=== PATIENT | male | born 1940 | race Caucasian/White ===

== ENCOUNTER 2018-10-24 12:34 | Inpatient (IN) | payer MEDICARE, MEDICAID ==
[~2018-10-24] VITALS: Ht 170.2 cm; Wt 70.3 kg
[2018-10-24 13:27] LABS: BASOPHILS % (AUTO) 0.4 % (0.0-2.0); EOSINOPHILS % (AUTO) 0.5 % (0.0-7.0); HEMATOCRIT 43.1 % (31.2-41.9); HEMOGLOBIN 14.1 g/dL (10.9-14.3); LYMPHOCYTES # (AUTO) 0.9 K/uL (20.0-40.0); LYMPHOCYTES % (AUTO) 11.2 % (20.5-51.5); MEAN CORPUSCULAR HEMOGLOBIN 29.2 uug (24.7-32.8); MEAN CORPUSCULAR HGB CONC 33 g/dL (32.3-35.6); MEAN CORPUSCULAR VOLUME 89.1 fL (75.5-95.3); MONOCYTES # (AUTO) 0.8 K/uL (2.0-10.0); MONOCYTES % (AUTO) 9.8 % (0.0-11.0); NEUTROPHILS # (AUTO) 6.3 K/uL (1.8-8.9); NEUTROPHILS % (AUTO) 78.1 % (38.5-71.5); PLATELET COUNT (AUTO) 211 K/uL (179-408); RED BLOOD CELL COUNT(AUTO) 4.83 MIL/uL (3.63-4.92)
[2018-10-24 13:33] LABS: CREATININE 0.9 mg/dL (0.6-1.3); POTASSIUM 3.5 mmol/L (3.5-5.1)
[2018-10-24 13:39] LABS: BILIRUBIN,DIRECT 5.6 mg/dL (0.0-0.2); BILIRUBIN,TOTAL 6.7 mg/dL (0.2-1.0); TOTAL PROTEIN, SERUM 7.6 g/dL (6.4-8.2)
[2018-10-24] MEDS ORDERED: ASPI81TA31 PO (13:39)
[2018-10-24] MEDS ORDERED: CHOL200074 PO (13:39)
[2018-10-24] MEDS ORDERED: MULT-213 PO (13:39)
[2018-10-24] MEDS ORDERED: ACET-2605 PO ×2 (13:39)
[2018-10-24] MEDS ORDERED: METO50TA16 PO (13:39)
[2018-10-24] MEDS ORDERED: MAG30ORA PO (13:39)
[2018-10-24] MEDS ORDERED: TAMS-3 PO (13:39)
[2018-10-24] MEDS ORDERED: NITR0.4T48 SL (13:39)
[2018-10-24] MEDS ORDERED: METF-442 PO (13:39)
[2018-10-24] MEDS ORDERED: INSU100V10 SQ ×2 (13:39)
[2018-10-24] MEDS ORDERED: ACET-2154 PO (13:39)
[2018-10-24] MEDS ORDERED: MAGN200T5 PO (13:39)
[2018-10-24] MEDS ORDERED: INSU100I28 SQ (13:39)
[2018-10-24] MEDS ORDERED: TIZA4CAP PO (13:39)
[2018-10-24] MEDS ORDERED: SITA50TA PO (13:39)
--- NOTE | 2018-10-24 16:10 | NUR ---
perineal hygiene provided, soft light color stool noticed in the diaper.
--- NOTE | 2018-10-24 16:40 | NUR ---
Received Patient from ER via [place], Patient with Admitting Diagnosis of Liver Failure under Dr. medeiros. Patient was transferred to bed in stable condition. No signs of Distress noted. No SOB. No complain of Pain or discomfort noted. IV site on Left Hand Intact, head to Toe Assessment was done. Skin is Intact. Called [facility] spoke with Dr. duggan (rn call center) with Order to continue Home medications, IVF NS at 75 cc/hr, and Labs in AM. Will Endorse to oncoming Nurse.
--- NOTE | 2018-10-24 16:45 | NUR ---
pt transfered to floor in stable condition.
[2018-10-24 16:50] VITALS: BP 122/48
[2018-10-24] MEDS: IV NS 1000 ML 1,000 ML IV PRN (17:41)
--- NOTE | 2018-10-24 19:30 | NUR ---
Received patient in bed awake A&Ox3. No SOB noted, not in distress. No complaints of pain at this time. IV site on L hand intact and patent w/ IVF infusing. Safety measures observed. Call light within reach
[2018-10-24 20:00] VITALS: BP 127/53
[2018-10-24] MEDS ORDERED: NITROGLYCERIN 0.4 MG/TAB BOTTLE SL PRN (20:00)
[2018-10-24] MEDS ORDERED: MAG HYDROX/AL HYDROX/SIMETH 30 ML LIQUID UDC PO PRN (20:00)
[2018-10-24] MEDS ORDERED: ACETAMINOPHEN ES 500 MG TABLET PO PRN ×2 (20:00)
[2018-10-24] MEDS: TAMSULOSIN HCL 0.4 MG CAP.SR.24H PO SCH (20:30)
[2018-10-24] MEDS: METOPROLOL TARTRATE 50 MG TABLET PO SCH (20:31)
[2018-10-24] MEDS: INSULIN GLARGINE,HUM 300 UNITS/3 ML CARTRIDGE SQ SCH (20:45)
[2018-10-24] MEDS: TIZANIDINE HCL 4 MG TABLET PO SCH (21:54)
[2018-10-25] MEDS: IV NS 1000 ML 1,000 ML IV PRN ×2 (05:11→17:42)
[2018-10-25 06:00] VITALS: BP 106/45
--- NOTE | 2018-10-25 06:04 | NUR ---
Patient slept intermittently. No SOB noted. No complaints of pain at this time. Patient compliant w/ medication and nursing care. All needs attended. Will endorse accordingly
[2018-10-25] MEDS: TIZANIDINE HCL 4 MG TABLET PO SCH (06:26)
[2018-10-25] MEDS: BLOOD SUGAR DIAGNOSTIC 1 EACH STRIP VI SCH ×4 (06:31→20:31)
[2018-10-25 06:40] LABS: BASOPHILS % (AUTO) 0.4 % (0.0-2.0); EOSINOPHILS # (AUTO) 0.1 K/uL (0.0-0.7); EOSINOPHILS % (AUTO) 1.6 % (0.0-7.0); HEMATOCRIT 37.5 % (36.7-47.1); HEMOGLOBIN 12.9 g/dL (12.5-16.3); LYMPHOCYTES # (AUTO) 1.2 K/uL (20.0-40.0); MEAN CORPUSCULAR HEMOGLOBIN 30.8 uug (23.8-33.4); MEAN CORPUSCULAR HGB CONC 34 g/dL (32.5-36.3); MEAN CORPUSCULAR VOLUME 89.6 fL (73.0-96.2); MONOCYTES # (AUTO) 0.9 K/uL (2.0-10.0); MONOCYTES % (AUTO) 11.9 % (0.0-11.0); NEUTROPHILS # (AUTO) 5.4 K/uL (1.8-8.9); NEUTROPHILS % (AUTO) 70.1 % (38.5-71.5); PLATELET COUNT (AUTO) 213 K/uL (152-348); RED BLOOD CELL COUNT(AUTO) 4.19 MIL/uL (4.06-5.63); WHITE BLOOD COUNT (AUTO) 7.7 K/uL (3.6-10.2)
[2018-10-25 06:42] LABS: ALANINE AMINOTRANSFERASE 177 U/L (16-63); ALKALINE PHOSPHATASE 424 U/L (50-136); ASPARTATE AMINOTRANSFERASE 103 U/L (15-37); BILIRUBIN,DIRECT 4.2 mg/dL (0.0-0.2); BILIRUBIN,TOTAL 5.6 mg/dL (0.2-1.0); CARBON DIOXIDE 26 mmol/L (21-32); CHLORIDE 105 mmol/L (98-107); CREATININE 0.9 mg/dL (0.6-1.3); GLUCOSE 73 mg/dL (74-106); POTASSIUM 3.3 mmol/L (3.5-5.1); TOTAL PROTEIN, SERUM 6.6 g/dL (6.4-8.2); UREA NITROGEN, BLOOD 14 mg/dL (7-18)
--- NOTE | 2018-10-25 07:00 | NUR ---
Received patient in bed, awake and verbally responsive. No signs of Respiratory distress noted. No SOB. No complain of Pain or discomfort. IVF infusing well to Left hand, No signs of Infiltration noted. Will continue to monitor.
[2018-10-25] MEDS ORDERED: METFORMIN HCL 500 MG TABLET PO SCH (08:00)
[2018-10-25] MEDS: INSULIN LISPRO 300 UNIT/3 ML VIAL SQ SCH ×3 (08:09→18:00)
[2018-10-25] MEDS: ASPIRIN 81 MG TAB.CHEW PO SCH (08:51)
[2018-10-25] MEDS: MAGNESIUM OXIDE 400 MG TABLET PO SCH (08:52)
[2018-10-25] MEDS: CHOLECALCIFEROL 1,000 UNIT TABLET PO SCH (08:52)
[2018-10-25] MEDS: METOPROLOL TARTRATE 50 MG TABLET PO SCH ×2 (08:52→20:31)
[2018-10-25] MEDS: MULTIVIT, IRON, MIN NO. 8, FA TABLET PO SCH (08:52)
[2018-10-25] MEDS: LINAGLIPTIN 5 MG TABLET PO SCH (08:52)
[2018-10-25] MEDS ORDERED: Medication Not On Formulary EA (Sitagliptin Phosphate (Januvia) 50 MG) PO SCH (09:00)
[2018-10-25] MEDS ORDERED: TIZANIDINE HCL 2 MG PO SCH (09:00)
[2018-10-25] MEDS ORDERED: Medication Not On Formulary EA (Multivitamins W-Minerals (Multivitamin With Minerals) 1 PO SCH (09:00)
[2018-10-25] MEDS ORDERED: Medication Not On Formulary EA (Magnesium (Magnesium Oxide) 400 MG) PO SCH (09:00)
[2018-10-25] MEDS ORDERED: Medication Not On Formulary EA (Metformin Hcl 1,000 MG) PO SCH (09:00)
[2018-10-25] MEDS: INSULIN GLARGINE,HUM 300 UNITS/3 ML CARTRIDGE SQ SCH ×2 (09:05→20:31)
[2018-10-25 11:49] VITALS: BP 119/56
[2018-10-25] MEDS ORDERED: POTASSIUM CHLORIDE 20 MEQ TAB.PRT.SR PO ONE (13:15)
[2018-10-25 15:47] VITALS: BP 122/60
--- NOTE | 2018-10-25 18:46 | NUR ---
Patient in Bed, awake and verbally responsive. No signs of Respiratory distress noted. No SOB. No complain of Pain or Discomfort noted. IVF infusing well to Left hand. No signs of Infiltration noted. Kitty MANAGER OF DISTRIBUTION came with order of Cdiff stool, sent specimen to labs. All needs attended and met. Will Endorse to Oncoming Nurse
--- NOTE | 2018-10-25 19:30 | NUR ---
Received patient in bed awake A&Ox3. No SOB noted, not in distress. No complaints of pain at this time. IV site on L hand intact and patent w/ IVF infusing. On contact isolation for possible c-diff. Patient to be on NPO at midnight for MRCP procedure umm. Safety measures observed. Call light within reach
[2018-10-25 19:54] VITALS: BP 129/47
[2018-10-25] MEDS: TAMSULOSIN HCL 0.4 MG CAP.SR.24H PO SCH (20:31)
[2018-10-26 05:06] VITALS: BP 124/48
--- NOTE | 2018-10-26 06:17 | NUR ---
Patient slept intermittently. No SOB noted, not in distress. Patient noted w/ loose BM x 2 this shift. Remains on NPO for MRCP w/o contrast this AM. Patient compliant w/ medication and nursing care. All needs attended. Will endorse accordingly
[2018-10-26 06:32] LABS: BASOPHILS # (AUTO) 0.1 K/uL (0.0-8.0); EOSINOPHILS # (AUTO) 0.2 K/uL (0.0-0.7); EOSINOPHILS % (AUTO) 1.8 % (0.0-7.0); HEMATOCRIT 35.8 % (36.7-47.1); HEMOGLOBIN 12.1 g/dL (12.5-16.3); LYMPHOCYTES # (AUTO) 1.6 K/uL (20.0-40.0); LYMPHOCYTES % (AUTO) 17.2 % (20.5-51.5); MEAN CORPUSCULAR HEMOGLOBIN 30.5 uug (23.8-33.4); MEAN CORPUSCULAR HGB CONC 34 g/dL (32.5-36.3); MEAN CORPUSCULAR VOLUME 89.7 fL (73.0-96.2); MONOCYTES % (AUTO) 10.3 % (0.0-11.0); NEUTROPHILS # (AUTO) 6.5 K/uL (1.8-8.9); NEUTROPHILS % (AUTO) 69.7 % (38.5-71.5); PLATELET COUNT (AUTO) 219 K/uL (152-348); RED BLOOD CELL COUNT(AUTO) 3.99 MIL/uL (4.06-5.63); WHITE BLOOD COUNT (AUTO) 9.3 K/uL (3.6-10.2)
[2018-10-26 06:44] LABS: CARBON DIOXIDE 25 mmol/L (21-32); CHLORIDE 108 mmol/L (98-107); CREATININE 0.8 mg/dL (0.6-1.3); MAGNESIUM 1.7 mg/dL (1.8-2.4); PHOSPHOROUS 2.2 mg/dL (2.5-4.9); POTASSIUM 3.6 mmol/L (3.5-5.1); UREA NITROGEN, BLOOD 7 mg/dL (7-18)
[2018-10-26 07:02] LABS: GLUCOSE 49 mg/dL (74-106)
--- NOTE | 2018-10-26 07:05 | NUR ---
Critical lab result for Glucose 49. Patient is alert and on NPO for MRCP procedure. Paged Dr. Khalil, awaiting for call back
[2018-10-26] MEDS: BLOOD SUGAR DIAGNOSTIC 1 EACH STRIP VI SCH ×4 (07:26→23:30)
--- NOTE | 2018-10-26 07:30 | NUR ---
Received patient in bed, awake and verbally responsive. No signs of distress noted. No SOB. No complain of Pain or discomfort, Blood sugar is 51 at this time, Dr. medeiros with New Order of D5 NS at 75 cc/hr. No signs of Hypoglycemia. Will continue to monitor.
[2018-10-26] MEDS: INSULIN LISPRO 300 UNIT/3 ML VIAL SQ SCH (07:54)
[2018-10-26 07:56] LABS: BILIRUBIN,DIRECT 2.2 mg/dL (0.0-0.2); BILIRUBIN,TOTAL 2.9 mg/dL (0.2-1.0); TOTAL PROTEIN, SERUM 6.6 g/dL (6.4-8.2)
[2018-10-26] MEDS ORDERED: IV D5/ 0.9% NACL 1,000 ML IV PRN (08:00)
--- NOTE | 2018-10-26 08:00 | NUR ---
Patient on NPO for MRCP w/o contrast at [facility] with 0900 picking machine operator helper.
[2018-10-26 08:07] LABS: HEPATITIS A AB, IgM Negative (Negative); HEPATITIS A AB, TOTAL Negative (Negative); HEPATITIS B SURFACE AB Non Reactive (.); HEPATITIS B SURFACE AG Negative (Negative)
[2018-10-26] MEDS: MAGNESIUM OXIDE 400 MG TABLET PO SCH (09:00)
[2018-10-26] MEDS: CHOLECALCIFEROL 1,000 UNIT TABLET PO SCH (09:00)
[2018-10-26] MEDS: LINAGLIPTIN 5 MG TABLET PO SCH (09:00)
[2018-10-26] MEDS: MULTIVIT, IRON, MIN NO. 8, FA TABLET PO SCH (09:00)
[2018-10-26] MEDS: METOPROLOL TARTRATE 50 MG TABLET PO SCH ×2 (09:00→20:37)
[2018-10-26] MEDS: INSULIN GLARGINE,HUM 300 UNITS/3 ML CARTRIDGE SQ SCH ×2 (09:00→20:39)
[2018-10-26] MEDS: ASPIRIN 81 MG TAB.CHEW PO SCH (09:00)
--- NOTE | 2018-10-26 09:00 | NUR ---
patient was picked up by 2 EMT for MRCP w/o contrast at [facility] in stable condition. last Blood sugar is 122.
[2018-10-26] MEDS ORDERED: DEXTROSE 50% 50 ML DISP.SYRIN IV PRN (10:30)
--- NOTE | 2018-10-26 10:55 | NUR ---
patient is back from [facility] instable condition.
[2018-10-26 12:02] VITALS: BP 149/58
--- NOTE | 2018-10-26 15:00 | NUR ---
Relayed MCRP w/o contrast to Kitty PROCESSING TECHNICIAN with New Order of STAT LFT, Direct and total Bili and Lipase.
[2018-10-26] MEDS: MAGNESIUM SULFATE/D5W 100 ML IV SCH ×2 (15:26→16:33)
[2018-10-26 15:43] VITALS: BP 149/53
[2018-10-26] MEDS ORDERED: NEUTRA PHOS PACKET PO ONE (15:45)
[2018-10-26] MEDS: IV NS 1000 ML 1,000 ML IV PRN (17:57)
[2018-10-26] MEDS: INSULIN REGULAR, HUMAN 300 UNIT/3 ML VIAL SQ PRN (18:43)
--- NOTE | 2018-10-26 18:48 | NUR ---
Patient in Bed, awake and verbally responsive. No signs of Distress noted. No complain of Pain or Discomfort. No signs of Hyper/Hypoglycemia. Abdomen Soft and non distended. All due medications given as ordered. All needs attended and met. Will endorse to Oncoming Nurse.
[2018-10-26 18:52] LABS: BILIRUBIN,TOTAL 2.7 mg/dL (0.2-1.0); TOTAL PROTEIN, SERUM 6.4 g/dL (6.4-8.2)
--- NOTE | 2018-10-26 19:30 | NUR ---
Received patient in bed asleep but arousable, A&Ox3. No SOB noted, not in distress. No complaints of pain at this time. IV site on L hand intact and patent w/ IVF infusing. On contact isolation for possible c-diff. Safety measures observed. Call light within reach
[2018-10-26] MEDS: TAMSULOSIN HCL 0.4 MG CAP.SR.24H PO SCH (20:37)
[2018-10-26 20:43] VITALS: BP 150/81
[2018-10-27] MEDS: INSULIN REGULAR, HUMAN 300 UNIT/3 ML VIAL SQ PRN (00:48)
[2018-10-27] MEDS: BLOOD SUGAR DIAGNOSTIC 1 EACH STRIP VI SCH ×3 (05:33→18:01)
[2018-10-27 06:29] VITALS: BP 140/72
[2018-10-27] MEDS: ACETAMINOPHEN 325 MG TABLET PO PRN (06:47)
[2018-10-27 06:53] LABS: CREATININE 0.8 mg/dL (0.6-1.3); PHOSPHOROUS 2.2 mg/dL (2.5-4.9); POTASSIUM 3.8 mmol/L (3.5-5.1)
--- NOTE | 2018-10-27 06:55 | NUR ---
Patient slept intermittently. No SOB noted, not in distress. Patient noted w/ soft BM x 1 this shift. Continue on contact isolation for possible c-diff. Patient noted w/ elevated Temp 100.8, PRN Tylenol 650mg given. BS at 6am was 66, OJ given, latest BS 115. Patient compliant w/ medication and nursing care. All needs attended. Will endorse accordingly
[2018-10-27] MEDS: LINAGLIPTIN 5 MG TABLET PO SCH (08:10)
[2018-10-27] MEDS: MULTIVIT, IRON, MIN NO. 8, FA TABLET PO SCH (08:10)
[2018-10-27] MEDS: MAGNESIUM OXIDE 400 MG TABLET PO SCH (08:10)
[2018-10-27] MEDS: CHOLECALCIFEROL 1,000 UNIT TABLET PO SCH (08:10)
[2018-10-27] MEDS: ASPIRIN 81 MG TAB.CHEW PO SCH (08:11)
[2018-10-27] MEDS: INSULIN GLARGINE,HUM 300 UNITS/3 ML CARTRIDGE SQ SCH ×2 (08:13→21:39)
[2018-10-27] MEDS: METOPROLOL TARTRATE 50 MG TABLET PO SCH ×2 (08:21→21:32)
[2018-10-27] MEDS ORDERED: INSULIN GLARGINE,HUM 300 UNITS/3 ML CARTRIDGE SQ SCH (09:00)
[2018-10-27] MEDS: IV NS 1000 ML 1,000 ML IV PRN (09:53)
[2018-10-27 11:02] VITALS: BP 113/49
[2018-10-27 15:02] VITALS: BP 145/62
[2018-10-27] MEDS ORDERED: NEUTRA PHOS PACKET PO ONE (16:15)
--- NOTE | 2018-10-27 18:06 | NUR ---
PATIENT IS ALERT X2-3, NO SOB, RESP EVEN NONLABORED,SKIN WARM AND DRY TO TOUCH, EVALUATED BY PT, PATIENT TOLERATED SITTING AT THE EDGE OF THE BED WITH ASSIST FOR FEW MINUTES, STAYED IN BED, KEPT CLEAN AND DRY, TOLERATED MEDS AND MEALS.
[2018-10-27 18:46] LABS: IRON, SERUM 17 ug/dL (50-175)
[2018-10-27 18:59] LABS: FERRITIN 232 ng/mL (26-388)
[2018-10-27 20:26] VITALS: BP 152/69
[2018-10-27] MEDS: TAMSULOSIN HCL 0.4 MG CAP.SR.24H PO SCH (21:31)
[2018-10-28] MEDS: IV NS 1000 ML 1,000 ML IV PRN ×2 (00:16→21:56)
[2018-10-28] MEDS: BLOOD SUGAR DIAGNOSTIC 1 EACH STRIP VI SCH ×4 (00:17→17:16)
[2018-10-28 05:16] VITALS: BP 132/62
[2018-10-28 08:00] VITALS: BP 146/68
[2018-10-28 08:11] LABS: CARBON DIOXIDE 25 mmol/L (21-32); CHLORIDE 103 mmol/L (98-107); CREATININE 0.8 mg/dL (0.6-1.3); GLUCOSE 87 mg/dL (74-106); PHOSPHOROUS 2.1 mg/dL (2.5-4.9); POTASSIUM 4.1 mmol/L (3.5-5.1); UREA NITROGEN, BLOOD 5 mg/dL (7-18)
--- NOTE | 2018-10-28 08:18 | NUR ---
Awake, alert, oriented x 2. O2 at 2L/NC with O2 sat of 92%. Temp of 100.8F. Sponge bath given. Repositioned comfortably in bed.
[2018-10-28] MEDS: ASPIRIN 81 MG TAB.CHEW PO SCH (09:18)
[2018-10-28] MEDS: METOPROLOL TARTRATE 50 MG TABLET PO SCH ×2 (09:19→21:05)
[2018-10-28] MEDS: CHOLECALCIFEROL 1,000 UNIT TABLET PO SCH (09:20)
[2018-10-28] MEDS: MULTIVIT, IRON, MIN NO. 8, FA TABLET PO SCH (09:20)
[2018-10-28] MEDS: LINAGLIPTIN 5 MG TABLET PO SCH (09:20)
[2018-10-28] MEDS: MAGNESIUM OXIDE 400 MG TABLET PO SCH (09:20)
[2018-10-28] MEDS: ACETAMINOPHEN 325 MG TABLET PO PRN (09:21)
[2018-10-28] MEDS: INSULIN GLARGINE,HUM 300 UNITS/3 ML CARTRIDGE SQ SCH ×2 (09:24→21:04)
--- NOTE | 2018-10-28 10:00 | NUR ---
Dr. Smith informed of patient's condition. Labs drawn, Chest xray done. For collection of urine and sputum.
[2018-10-28 10:06] LABS: HEPATITIS Be ANTIGEN Negative (Negative)
[2018-10-28 11:33] VITALS: BP 137/67
[2018-10-28 11:41] LABS: BASOPHILS % (AUTO) 0.3 % (0.0-2.0); EOSINOPHILS # (AUTO) 0.1 K/uL (0.0-0.7); HEMATOCRIT 34.8 % (36.7-47.1); HEMOGLOBIN 11.4 g/dL (12.5-16.3); LYMPHOCYTES # (AUTO) 1.2 K/uL (20.0-40.0); LYMPHOCYTES % (AUTO) 12.6 % (20.5-51.5); MEAN CORPUSCULAR HGB CONC 33 g/dL (32.5-36.3); MEAN CORPUSCULAR VOLUME 88.2 fL (73.0-96.2); MONOCYTES # (AUTO) 0.8 K/uL (2.0-10.0); MONOCYTES % (AUTO) 8.7 % (0.0-11.0); NEUTROPHILS # (AUTO) 7.5 K/uL (1.8-8.9); NEUTROPHILS % (AUTO) 77.4 % (38.5-71.5); PLATELET COUNT (AUTO) 230 K/uL (152-348); RED BLOOD CELL COUNT(AUTO) 3.95 MIL/uL (4.06-5.63); WHITE BLOOD COUNT (AUTO) 9.7 K/uL (3.6-10.2)
[2018-10-28 12:00] LABS: ALANINE AMINOTRANSFERASE 252 U/L (16-63); ALKALINE PHOSPHATASE 370 U/L (50-136); ASPARTATE AMINOTRANSFERASE 155 U/L (15-37); BILIRUBIN,TOTAL 2.1 mg/dL (0.2-1.0); CARBON DIOXIDE 25 mmol/L (21-32); CHLORIDE 103 mmol/L (98-107); CREATININE 0.8 mg/dL (0.6-1.3); GLUCOSE 102 mg/dL (74-106); PHOSPHOROUS 2.2 mg/dL (2.5-4.9); TOTAL PROTEIN, SERUM 6.4 g/dL (6.4-8.2); UREA NITROGEN, BLOOD 6 mg/dL (7-18)
--- NOTE | 2018-10-28 12:00 | NUR ---
BG 80, encouraged to po intake.
--- NOTE | 2018-10-28 14:00 | NUR ---
incontinence care done. Repositioned comfortably.
--- NOTE | 2018-10-28 14:30 | NUR ---
Spoke with Dr. Mcdaniel and discussed DC planning to [facility], seen and examined patient
[2018-10-28] MEDS ORDERED: NEUTRA PHOS PACKET PO ONE (15:30)
[2018-10-28 15:38] VITALS: BP 137/66
--- NOTE | 2018-10-28 18:00 | NUR ---
Blood glucose 50, rechecked to 58, after OJ, D50 IV given as ordered. With latest BG of 144. Ate dinner fairly.
--- NOTE | 2018-10-28 20:00 | NUR ---
Patient received into care awake and alert, resting comfortably in bed. All safety and fall precaution measures are in place. Call light and personal items are within reach at all times. Will continue to monitor.
[2018-10-28 20:24] VITALS: BP 142/61
[2018-10-28] MEDS: TAMSULOSIN HCL 0.4 MG CAP.SR.24H PO SCH (21:06)
--- NOTE | 2018-10-29 00:15 | NUR ---
0000h blood sugar check reflected 44. Patient is awake and alert, with no s/s of hypoglycemia present. Charge nurse notified. Pitkin juic and snack provided to patient. Will recheck in 30 minutes.
[2018-10-29] MEDS: BLOOD SUGAR DIAGNOSTIC 1 EACH STRIP VI SCH ×6 (00:33→23:24)
--- NOTE | 2018-10-29 01:00 | NUR ---
Blood sugar recheck shows 65. Patient is still asymptomatic and is alert and talking with nurse. Gave more orange juice. Will recheck in 30 minutes. Charge nurse aware.
--- NOTE | 2018-10-29 01:30 | NUR ---
Blood sugar recheck reflects 108. Charge nurse notified.
[2018-10-29 05:53] VITALS: BP 140/71
--- NOTE | 2018-10-29 06:30 | NUR ---
Patient slept intermittently throughout night in bed. Patient was compliant with all aspects of care this shift. All prescribed medications were given as ordered and tolerated well by patient. Blood sugar monitoring reflected on incident of low blood sugar, where the patient was asymptomatic and awake and alert with nurse, was addressed promptly and corrected. IV site remains patent and intact. Call light and personal items are within reach at all times.
[2018-10-29 06:43] LABS: BASOPHILS % (AUTO) 0.3 % (0.0-2.0); EOSINOPHILS # (AUTO) 0.2 K/uL (0.0-0.7); EOSINOPHILS % (AUTO) 2.3 % (0.0-7.0); HEMATOCRIT 35.9 % (36.7-47.1); HEMOGLOBIN 11.7 g/dL (12.5-16.3); LYMPHOCYTES # (AUTO) 1.5 K/uL (20.0-40.0); LYMPHOCYTES % (AUTO) 15.5 % (20.5-51.5); MEAN CORPUSCULAR HEMOGLOBIN 29.1 uug (23.8-33.4); MEAN CORPUSCULAR HGB CONC 33 g/dL (32.5-36.3); MEAN CORPUSCULAR VOLUME 89.6 fL (73.0-96.2); MONOCYTES # (AUTO) 0.6 K/uL (2.0-10.0); MONOCYTES % (AUTO) 6.3 % (0.0-11.0); NEUTROPHILS # (AUTO) 7.1 K/uL (1.8-8.9); NEUTROPHILS % (AUTO) 75.6 % (38.5-71.5); PLATELET COUNT (AUTO) 256 K/uL (152-348); RED BLOOD CELL COUNT(AUTO) 4.01 MIL/uL (4.06-5.63); WHITE BLOOD COUNT (AUTO) 9.4 K/uL (3.6-10.2)
[2018-10-29 07:11] LABS: ALANINE AMINOTRANSFERASE 205 U/L (16-63); ALKALINE PHOSPHATASE 372 U/L (50-136); ASPARTATE AMINOTRANSFERASE 97 U/L (15-37); BILIRUBIN,TOTAL 1.8 mg/dL (0.2-1.0); CARBON DIOXIDE 26 mmol/L (21-32); CHLORIDE 105 mmol/L (98-107); CREATININE 0.9 mg/dL (0.6-1.3); GLUCOSE 103 mg/dL (74-106); MAGNESIUM 2.1 mg/dL (1.8-2.4); PHOSPHOROUS 2.4 mg/dL (2.5-4.9); POTASSIUM 4.1 mmol/L (3.5-5.1); TOTAL PROTEIN, SERUM 6.8 g/dL (6.4-8.2); UREA NITROGEN, BLOOD 5 mg/dL (7-18)
[2018-10-29] MEDS: LINAGLIPTIN 5 MG TABLET PO SCH (09:11)
[2018-10-29] MEDS: CHOLECALCIFEROL 1,000 UNIT TABLET PO SCH (09:11)
[2018-10-29] MEDS: MULTIVIT, IRON, MIN NO. 8, FA TABLET PO SCH (09:11)
[2018-10-29] MEDS: MAGNESIUM OXIDE 400 MG TABLET PO SCH (09:11)
[2018-10-29] MEDS: METOPROLOL TARTRATE 50 MG TABLET PO SCH ×2 (09:12→21:24)
[2018-10-29] MEDS: ASPIRIN 81 MG TAB.CHEW PO SCH (09:12)
[2018-10-29] MEDS: INSULIN GLARGINE,HUM 300 UNITS/3 ML CARTRIDGE SQ SCH ×2 (09:18→21:27)
[2018-10-29] MEDS: IV NS 1000 ML 1,000 ML IV PRN (13:05)
[2018-10-29 16:30] VITALS: BP 145/55
--- NOTE | 2018-10-29 16:48 | NUR ---
Pt received this morning, resting in bed. No acute distress, pain, or SOB noted. VSS. BS 124 prior to lunch. Pt compliant with all routine medication administration and cooperative with care provided as needed. Pt right forearm IV, flushed, patent, and NS running 75ml/hr. Pt repositioned [id number] for comfort. Standing orders for sputum and urine collections noted, but Pt unable to provide samples at this time, will continue to attempt collection. All safety measures implemented promptly throughout the shift. Bed in locked, lowest position with side rails up x2. Bed alarm on. Call light within reach. Will continue to monitor and endorse as necessary.
[2018-10-29] MEDS ORDERED: NEUTRA PHOS PACKET PO ONE (18:15)
--- NOTE | 2018-10-29 18:44 | NUR ---
Pt scheduled BS checked just following dinner at 1800 resulted to be 69. Beadle juice provided, BS rechecked increased to 88. Pt is asymptomatic, states he "feels fine" joking around, in good spirits discussing the ages of his reported 15 children. Pt denies s/s of hypoglycemia. All needs met at this time. Will continue to monitor and endorse to oncoming shift.
--- NOTE | 2018-10-29 19:15 | NUR ---
Patient received into care, awake and alert in bed. IV site is infiltrated. Nurse removed IV cath and new IV site started on right wrist, 22g, which is patent and intact. Patient has no complaints of pain or discomfort at this time. All safety and fall precaution measures are in place. Call light and personal items are within reach at all times. Will continue to monitor.
[2018-10-29 20:05] VITALS: BP 149/57
--- NOTE | 2018-10-29 21:00 | NUR ---
Provided patient with orange juice and snack following administration of prescribed Lantus @ 15 units.
[2018-10-29] MEDS: TAMSULOSIN HCL 0.4 MG CAP.SR.24H PO SCH (21:24)
--- NOTE | 2018-10-29 23:15 | NUR ---
Blood sugar check for 0000h is 80. I provided patient with orange juice to prevent decline in blood sugar, as has occurred on previous shifts over night.
--- NOTE | 2018-10-30 06:02 | NUR ---
Blood sugar this morning is 48. Charge nurse notified. Nurse provided patient with orange juice and snack. Will recheck blood sugar in 30 minutes.
[2018-10-30] MEDS: BLOOD SUGAR DIAGNOSTIC 1 EACH STRIP VI SCH ×4 (06:04→23:36)
[2018-10-30 06:30] VITALS: BP 140/71
--- NOTE | 2018-10-30 06:40 | NUR ---
Blood sugar recheck reflects 108. Charge nurse notified.
--- NOTE | 2018-10-30 06:50 | NUR ---
Patient slept throughout night with no complaints of pain or discomfort. All prescribed medications provided as ordered and tolerated well with no adverse effects verbalized by patient or observed by nurse. All safety and fall precaution measures remain in place. Call light and personal items are within reach at all times.
[2018-10-30 07:04] LABS: BASOPHILS # (AUTO) 0.1 K/uL (0.0-8.0); BASOPHILS % (AUTO) 0.5 % (0.0-2.0); EOSINOPHILS # (AUTO) 0.2 K/uL (0.0-0.7); HEMATOCRIT 34.8 % (36.7-47.1); HEMOGLOBIN 11.8 g/dL (12.5-16.3); LYMPHOCYTES # (AUTO) 1.5 K/uL (20.0-40.0); LYMPHOCYTES % (AUTO) 14.3 % (20.5-51.5); MEAN CORPUSCULAR HEMOGLOBIN 30.9 uug (23.8-33.4); MEAN CORPUSCULAR HGB CONC 34 g/dL (32.5-36.3); MEAN CORPUSCULAR VOLUME 90.7 fL (73.0-96.2); MONOCYTES # (AUTO) 0.8 K/uL (2.0-10.0); MONOCYTES % (AUTO) 7.5 % (0.0-11.0); NEUTROPHILS # (AUTO) 7.8 K/uL (1.8-8.9); NEUTROPHILS % (AUTO) 75.7 % (38.5-71.5); PLATELET COUNT (AUTO) 313 K/uL (152-348); RED BLOOD CELL COUNT(AUTO) 3.83 MIL/uL (4.06-5.63); WHITE BLOOD COUNT (AUTO) 10.3 K/uL (3.6-10.2)
[2018-10-30 07:31] LABS: ALANINE AMINOTRANSFERASE 152 U/L (16-63); ALKALINE PHOSPHATASE 366 U/L (50-136); ASPARTATE AMINOTRANSFERASE 67 U/L (15-37); BILIRUBIN,TOTAL 1.6 mg/dL (0.2-1.0); CARBON DIOXIDE 25 mmol/L (21-32); CHLORIDE 105 mmol/L (98-107); CREATININE 0.8 mg/dL (0.6-1.3); GLUCOSE 67 mg/dL (74-106); PHOSPHOROUS 2.9 mg/dL (2.5-4.9); POTASSIUM 4.3 mmol/L (3.5-5.1); TOTAL PROTEIN, SERUM 6.9 g/dL (6.4-8.2); UREA NITROGEN, BLOOD 5 mg/dL (7-18)
[2018-10-30 08:00] VITALS: BP 115/53
--- NOTE | 2018-10-30 08:49 | NUR ---
POC sugar of 87 at this time attending physician present in the unit and orders to continue with care plan received. Patient received his schedule [address] breakfast [address] Dr[address] Dick. with 87 as stated medications been titrated down.
[2018-10-30] MEDS: LINAGLIPTIN 5 MG TABLET PO SCH (08:52)
[2018-10-30] MEDS: MULTIVIT, IRON, MIN NO. 8, FA TABLET PO SCH (08:52)
[2018-10-30] MEDS: MAGNESIUM OXIDE 400 MG TABLET PO SCH (08:52)
[2018-10-30] MEDS: ASPIRIN 81 MG TAB.CHEW PO SCH (08:53)
[2018-10-30] MEDS: METOPROLOL TARTRATE 50 MG TABLET PO SCH ×2 (08:53→20:49)
[2018-10-30] MEDS: CHOLECALCIFEROL 1,000 UNIT TABLET PO SCH (08:56)
[2018-10-30] MEDS ORDERED: INSULIN GLARGINE,HUM 300 UNITS/3 ML CARTRIDGE SQ SCH ×3 (09:00→21:00)
[2018-10-30 11:47] VITALS: BP 144/61
--- NOTE | 2018-10-30 14:56 | NUR ---
Bedside report given to Binta Riley and orientee. All questions answered.
[2018-10-30 16:10] VITALS: BP 114/54
--- NOTE | 2018-10-30 18:34 | NUR ---
Patient AOx3. Patient consumed dinner. Resting in bed with bed in lowest position, locked, semi-fowlers with 2 side rails up. No acute change in condition noted. Respirations WNL. Pt. displays no sign of distress.
--- NOTE | 2018-10-30 19:25 | NUR ---
RECEIVED PT AWAKE, ALERT AND ORIENTEDX3. PT SHOWS NO SIGNS OF ACUTE DISTRESS. IV INTACT.PT ON 2L NASAL CANNULA . SAFETY AND COMFORT PROVIDED. WILL CONTINUE TO MONITOR.
[2018-10-30 20:07] VITALS: BP 132/71
[2018-10-30] MEDS: TAMSULOSIN HCL 0.4 MG CAP.SR.24H PO SCH (20:49)
[2018-10-30] MEDS: INSULIN REGULAR, HUMAN 300 UNIT/3 ML VIAL SQ PRN ×2 (20:58→23:36)
[2018-10-31] MEDS: BLOOD SUGAR DIAGNOSTIC 1 EACH STRIP VI SCH ×2 (06:12→12:15)
--- NOTE | 2018-10-31 06:33 | NUR ---
PT SLEPT INTERMITTENTLY. PT SHOWS NO SIGNS OF ACUTE DISTRESS. AT 0530H PT BLOOD SUGAR DROPS AT 58 AND GIVEN ORANGE JUICE AFTER 30 MINUTES PT BLOOD SUGAR WAS 111. CHARGE NURSE AWARE. PT ON 2L NASAL CANNULA. PRESCRIBED MEDICATION GIVEN AND PT TOLERATED IT WELL. ALL NEEDS ARE MET. SAFETY AND COMFORT PROVIDED. WILL ENDORSE TO INCOMING NURSE FOR CONTINUITY OF CARE.
[2018-10-31 06:38] VITALS: BP 140/67
--- NOTE | 2018-10-31 07:30 | NUR ---
Patient calm and comfortable with no signs of distress; patient resting in bed with stable vital signs. Patient call light with reach; safety devices in place.
[2018-10-31] MEDS: MULTIVIT, IRON, MIN NO. 8, FA TABLET PO SCH (09:01)
[2018-10-31] MEDS: MAGNESIUM OXIDE 400 MG TABLET PO SCH (09:01)
[2018-10-31] MEDS: METOPROLOL TARTRATE 50 MG TABLET PO SCH (09:05)
[2018-10-31] MEDS: ASPIRIN 81 MG TAB.CHEW PO SCH (09:06)
[2018-10-31] MEDS: CHOLECALCIFEROL 1,000 UNIT TABLET PO SCH (09:06)
[2018-10-31] MEDS: LINAGLIPTIN 5 MG TABLET PO SCH (09:06)
[2018-10-31] MEDS ORDERED: FURO-152 PO (11:18)
[2018-10-31] MEDS ORDERED: INSU3INS6 SQ (11:18)
[2018-10-31] MEDS ORDERED: Insulin Glargine,Hum SQ (11:18)
[2018-10-31] MEDS ORDERED: FUROSEMIDE 40 MG/4 ML VIAL IV ONE (11:30)
[2018-10-31 11:38] VITALS: BP 161/71
[2018-10-31 13:06] LABS: ANTI-MITOCHONDRIAL AB <20.0 Units (0.0-20.0)
[2018-10-31 13:17] LABS: BASOPHILS # (AUTO) 0.1 K/uL (0.0-8.0); BASOPHILS % (AUTO) 0.9 % (0.0-2.0); EOSINOPHILS # (AUTO) 0.3 K/uL (0.0-0.7); EOSINOPHILS % (AUTO) 2.6 % (0.0-7.0); HEMATOCRIT 38.5 % (36.7-47.1); HEMOGLOBIN 12.5 g/dL (12.5-16.3); LYMPHOCYTES # (AUTO) 1.4 K/uL (20.0-40.0); LYMPHOCYTES % (AUTO) 13.9 % (20.5-51.5); MEAN CORPUSCULAR HGB CONC 32 g/dL (32.5-36.3); MEAN CORPUSCULAR VOLUME 89.4 fL (73.0-96.2); MONOCYTES # (AUTO) 0.7 K/uL (2.0-10.0); MONOCYTES % (AUTO) 6.3 % (0.0-11.0); NEUTROPHILS # (AUTO) 7.9 K/uL (1.8-8.9); NEUTROPHILS % (AUTO) 76.3 % (38.5-71.5); PLATELET COUNT (AUTO) 400 K/uL (152-348); RED BLOOD CELL COUNT(AUTO) 4.31 MIL/uL (4.06-5.63); WHITE BLOOD COUNT (AUTO) 10.4 K/uL (3.6-10.2)
[2018-10-31 13:36] LABS: ALANINE AMINOTRANSFERASE 123 U/L (16-63); ALKALINE PHOSPHATASE 397 U/L (50-136); ASPARTATE AMINOTRANSFERASE 45 U/L (15-37); BILIRUBIN,TOTAL 1.4 mg/dL (0.2-1.0); CARBON DIOXIDE 28 mmol/L (21-32); CHLORIDE 99 mmol/L (98-107); CREATININE 0.9 mg/dL (0.6-1.3); GLUCOSE 178 mg/dL (74-106); PHOSPHOROUS 3.9 mg/dL (2.5-4.9); POTASSIUM 4.6 mmol/L (3.5-5.1); TOTAL PROTEIN, SERUM 7.4 g/dL (6.4-8.2); UREA NITROGEN, BLOOD 7 mg/dL (7-18)
--- NOTE | 2018-10-31 15:00 | NUR ---
Patient discharged back to facility in stable condition with no signs of distress; Report given to Charlotte LEMUS supervisor reclamation at [facility] ; Patient agreed to discharge. Patient picked up by private ambulance . Patient skin intact ; patient sent with all belongings and valuables.
[2018-11-01] MEDS ORDERED: INSULIN GLARGINE,HUM 300 UNITS/3 ML CARTRIDGE SQ SCH (09:00)
== END 2018-10-31 15:00 | DRG 441 ==
LOC: ER 12:34 → EDSEX 12:34 → MEDSURG3 16:17
PROVIDERS: ADMIT Internal Medicine Nephrology; ATTEND Internal Medicine Nephrology
DX: K71.10 Toxic liver disease with hepatic necrosis, without coma (principal); I50.31 Acute diastolic (congestive) heart failure; I69.359 Hemiplegia and hemiparesis following cerebral infarction affecting unspecified side; F05 Delirium due to known physiological condition; F01.51 Vascular dementia, unspecified severity, with behavioral disturbance; G20 Parkinson's disease; F02.80 Dementia in other diseases classified elsewhere, unspecified severity, without behavioral disturbance, psychotic disturbance, mood disturbance, and anxiety; Z90.49 Acquired absence of other specified parts of digestive tract; F32.9 Major depressive disorder, single episode, unspecified; N40.0 Benign prostatic hyperplasia without lower urinary tract symptoms; I11.0 Hypertensive heart disease with heart failure; E11.649 Type 2 diabetes mellitus with hypoglycemia without coma; Z79.4 Long term (current) use of insulin; T50.905A Adverse effect of unspecified drugs, medicaments and biological substances, initial encounter; Y92.129 Unspecified place in nursing home as the place of occurrence of the external cause; E87.6 Hypokalemia; R09.02 Hypoxemia
CPT/HCPCS: 36415; 70030-TC; 71045; 74181; 82390; 82525; 83550; 83690; 83735; 84100; 85025; 85610; 85730; 86235; 86704; 86705; 86706; 86708; 86709; 86803; 87040; 87086; 87340; 87350; 93005; A4663; G0378; J1815; J1940; J3475; J3490; J7030; J7042

== ENCOUNTER 2018-11-05 17:35 | Inpatient (IN) | payer MEDICARE, MEDICAID ==
[~2018-11-05] VITALS: Ht 167.6 cm; Wt 66.7 kg
[~2018-11-05 17:35] MED LIST: ACET-2605 PO; ASPI81TA31 PO; CHOL200074 PO; FURO-152 PO; INSU100I28 SQ; INSU3INS6 SQ; Insulin Glargine,Hum SQ; MAG30ORA PO; MAGN200T5 PO; METF-442 PO; METO50TA16 PO; MULT-213 PO; NITR0.4T48 SL; SITA50TA PO; TAMS-3 PO
[2018-11-05 18:42] LABS: BASOPHILS # (AUTO) 0.1 K/uL (0.0-8.0); BASOPHILS % (AUTO) 0.9 % (0.0-2.0); EOSINOPHILS # (AUTO) 0.2 K/uL (0.0-0.7); EOSINOPHILS % (AUTO) 1.8 % (0.0-7.0); HEMOGLOBIN 13.6 g/dL (12.5-16.3); LYMPHOCYTES # (AUTO) 1.3 K/uL (20.0-40.0); LYMPHOCYTES % (AUTO) 15.4 % (20.5-51.5); MEAN CORPUSCULAR HEMOGLOBIN 29.6 uug (23.8-33.4); MEAN CORPUSCULAR HGB CONC 33 g/dL (32.5-36.3); MEAN CORPUSCULAR VOLUME 89.6 fL (73.0-96.2); MONOCYTES # (AUTO) 0.6 K/uL (2.0-10.0); MONOCYTES % (AUTO) 7.4 % (0.0-11.0); NEUTROPHILS # (AUTO) 6.2 K/uL (1.8-8.9); NEUTROPHILS % (AUTO) 74.5 % (38.5-71.5); PLATELET COUNT (AUTO) 477 K/uL (152-348); RED BLOOD CELL COUNT(AUTO) 4.58 MIL/uL (4.06-5.63); WHITE BLOOD COUNT (AUTO) 8.3 K/uL (3.6-10.2)
[2018-11-05 18:52] LABS: CARBON DIOXIDE 29 mmol/L (21-32); CHLORIDE 99 mmol/L (98-107); GLUCOSE 245 mg/dL (74-106); POTASSIUM 4.1 mmol/L (3.5-5.1); UREA NITROGEN, BLOOD 17 mg/dL (7-18)
[2018-11-05 18:57] LABS: ALANINE AMINOTRANSFERASE 80 U/L (16-63); ALKALINE PHOSPHATASE 325 U/L (50-136); ASPARTATE AMINOTRANSFERASE 35 U/L (15-37); BILIRUBIN,DIRECT 0.7 mg/dL (0.0-0.2); TOTAL PROTEIN, SERUM 8.1 g/dL (6.4-8.2)
[2018-11-05 18:59] LABS: ACETAMINOPHEN < 2.0 ug/mL (10-30)
[2018-11-05 19:00] LABS: ETHANOL < 3 MG/DL (0-0)
[2018-11-05 19:05] LABS: THYROID STIMULATING HORMONE 3.194 mIU/mL (0.358-3.740)
--- NOTE | 2018-11-05 19:20 | NUR ---
MEDICALLY CLEARED BY DR ALCOCER. CALLED [facility] FROM [facility]. ETA IS 1.5HR.
[2018-11-05] MEDS ORDERED: ACET325T53 PO (19:43)
[2018-11-05] MEDS ORDERED: ACET-73 PO (19:43)
[2018-11-05] MEDS ORDERED: MAGN400O6 PO (19:43)
[2018-11-05] MEDS ORDERED: NA P133E RC (19:43)
[2018-11-05] MEDS ORDERED: FURO-152 PO (19:43)
[2018-11-05] MEDS ORDERED: INSU3INS6 SQ (19:43)
[2018-11-05] MEDS ORDERED: BISA10SU12 RC (19:43)
--- NOTE | 2018-11-05 20:22 | NUR ---
Derrick, Crisis Team is here to evaluate patients
--- NOTE | 2018-11-05 22:30 | NUR ---
DR. GRAHAM WAS NOTIFY OF PATIENT'S ADMISSION TO [facility]. OBTAINED ADMISSION ORDERS.WILL CONTINUE TO MONITOR.
--- NOTE | 2018-11-05 22:31 | NUR ---
Report given to MARIAH Barrios
[2018-11-05] MEDS ORDERED: MAGNESIUM HYDROXIDE 30 ML LIQUID UDC PO PRN (22:45)
[2018-11-05] MEDS ORDERED: TEMAZEPAM 7.5 MG CAPSULE PO PRN (22:45)
[2018-11-05] MEDS ORDERED: MAG HYDROX/AL HYDROX/SIMETH 30 ML LIQUID UDC PO PRN (22:45)
[2018-11-05] MEDS ORDERED: LORAZEPAM 0.5 MG TABLET PO PRN (22:45)
[2018-11-05] MEDS ORDERED: BLOOD SUGAR DIAGNOSTIC 1 EACH STRIP VI ONE (22:45)
[2018-11-05] MEDS ORDERED: ACETAMINOPHEN 325 MG TABLET PO PRN (22:45)
[2018-11-05 23:00] VITALS: BP 159/79
--- NOTE | 2018-11-05 23:30 | NUR ---
Received patient from ER. Dx: Psychosis. Patient is a voluntary mental health admit. Patient is A/Ox3. Face to face assessment done. No acute distress noted. No complaints of pain or SOB. Patient oriented to room and unit. Q30 min checks started. Safety measures initiated. Will continue with admission process.
--- NOTE | 2018-11-05 23:50 | NUR ---
Medication will be reconciled in AM.
[2018-11-06] MEDS ORDERED: DEXTROSE 50% 50 ML DISP.SYRIN IV PRN
[2018-11-06] MEDS: BLOOD SUGAR DIAGNOSTIC 1 EACH STRIP VI SCH ×5 (00:14→21:05)
[2018-11-06] MEDS: INSULIN REGULAR, HUMAN 300 UNIT/3 ML VIAL SQ PRN ×5 (00:15→21:00)
[2018-11-06] MEDS ORDERED: BLOOD SUGAR DIAGNOSTIC 1 EACH STRIP VI SCH (07:30)
[2018-11-06] MEDS ORDERED: MAGNESIUM HYDROXIDE 30 ML LIQUID UDC PO PRN (11:15)
[2018-11-06] MEDS ORDERED: ACETAMINOPHEN ES 500 MG TABLET PO PRN ×2 (11:15)
[2018-11-06] MEDS ORDERED: BISACODYL 10 MG SUPP.RECT RC PRN (11:15)
[2018-11-06] MEDS ORDERED: MAG HYDROX/AL HYDROX/SIMETH 30 ML LIQUID UDC PO PRN (11:15)
[2018-11-06] MEDS ORDERED: FLEET ENEMA 133 ML BOTTLE RC PRN (11:15)
[2018-11-06] MEDS ORDERED: ACETAMINOPHEN 325 MG TABLET PO PRN (11:15)
[2018-11-06] MEDS ORDERED: NITROGLYCERIN 0.4 MG/TAB BOTTLE SL PRN (11:15)
[2018-11-06] MEDS ORDERED: INSU100V28 SQ (11:27)
[2018-11-06] MEDS ORDERED: INSU100V7 SQ ×2 (11:27)
[2018-11-06 11:50] VITALS: BP 124/69
[2018-11-06] MEDS: LINAGLIPTIN 5 MG TABLET PO SCH (12:09)
[2018-11-06 16:01] VITALS: BP 119/59
[2018-11-06] MEDS ORDERED: Medication Not On Formulary EA (Metformin Hcl 1,000 MG) PO SCH (17:00)
[2018-11-06] MEDS: METFORMIN HCL 500 MG TABLET PO SCH (17:03)
--- NOTE | 2018-11-06 17:15 | NUR ---
Patient alert and oriented, with periods of forgetfulness. PT eval done today, maximum assist unable to walk left side unable to move lower extremity. Continues on accuchecks with sliding scale. Denies any SI/HI. Safety precautions in place. End of shift chart check done, will endorse care to oncoming shift.
[2018-11-06] MEDS: busPIRone 5 MG TABLET PO SCH (19:06)
--- NOTE | 2018-11-06 19:30 | NUR ---
Received patient awake and alert in bed. No signs of acute distress noted. No complaints of pain or SOB. Safety measures initiated. Bed is low and locked, call light within reach. will continue to monitor.
[2018-11-06 20:06] VITALS: BP 131/65
[2018-11-06] MEDS: INSULIN GLARGINE,HUM 300 UNITS/3 ML CARTRIDGE SQ SCH (21:02)
[2018-11-06] MEDS: METOPROLOL TARTRATE 50 MG TABLET PO SCH (21:03)
[2018-11-06] MEDS: TAMSULOSIN HCL 0.4 MG CAP.SR.24H PO SCH (21:05)
[2018-11-07 05:38] VITALS: BP 105/53
[2018-11-07] MEDS: BLOOD SUGAR DIAGNOSTIC 1 EACH STRIP VI SCH ×4 (06:50→21:06)
[2018-11-07] MEDS: INSULIN REGULAR, HUMAN 300 UNIT/3 ML VIAL SQ PRN ×4 (08:39→21:16)
[2018-11-07] MEDS: METFORMIN HCL 500 MG TABLET PO SCH ×2 (08:39→17:02)
[2018-11-07] MEDS: LINAGLIPTIN 5 MG TABLET PO SCH (08:40)
[2018-11-07] MEDS: busPIRone 5 MG TABLET PO SCH ×2 (08:40→17:02)
[2018-11-07] MEDS: FUROSEMIDE 20 MG TABLET PO SCH (08:40)
[2018-11-07] MEDS: ASPIRIN 81 MG TAB.CHEW PO SCH (08:40)
[2018-11-07] MEDS: MULTIVIT, IRON, MIN NO. 8, FA TABLET PO SCH (08:40)
[2018-11-07] MEDS: METOPROLOL TARTRATE 50 MG TABLET PO SCH ×2 (08:40→21:06)
[2018-11-07] MEDS: MAGNESIUM OXIDE 400 MG TABLET PO SCH (08:40)
[2018-11-07] MEDS: CHOLECALCIFEROL 1,000 UNIT TABLET PO SCH (08:40)
[2018-11-07] MEDS ORDERED: Medication Not On Formulary EA (Sitagliptin Phosphate (Januvia) 50 MG) PO SCH (09:00)
[2018-11-07] MEDS ORDERED: Medication Not On Formulary EA (Multivitamins W-Minerals (Multivitamin With Minerals) 1 PO SCH (09:00)
[2018-11-07] MEDS ORDERED: Medication Not On Formulary EA (Magnesium (Magnesium Oxide) 400 MG) PO SCH (09:00)
[2018-11-07 11:47] VITALS: BP 107/52
[2018-11-07 15:51] VITALS: BP 132/62
--- NOTE | 2018-11-07 15:52 | NUR ---
Initial Discharge note Patient currently resides at [facility] [[address], [place] [address]; ]. beef cattle farm worker spoke with Triston [director of operations home health; [phone]] who confirmed patient will return when ready for discharge. Spoke with Manuel iRvera [[phone]] who is patient's brother and DPOA and would like to be informed of patient's discharge plans. SW will continue to work with patient, family, and MD to ensure a safe and proper discharge plan.
--- NOTE | 2018-11-07 17:10 | NUR ---
Patient resting in bed, no distress noted or complaints of pain. Patient calm and cooperative with nursing care. Compliant with medication. No agitation noted. Patient initiates interaction and answers appropriately in conversation. Accuchecks in place. End of shift chart check done, will endorse care to oncoming shift.
--- NOTE | 2018-11-07 17:20 | NUR ---
REPORT RECEIVED FROM [place]. PATIENT ROUNDS MADE. PATIENT IN STABLE CONDITION. SAFETY AND FALL PREVENTION IN PLACE. BED IN LOW POSITION CALL LIGHT IN REACH. WILL CONTINUE TO MONITOR.
--- NOTE | 2018-11-07 18:31 | NUR ---
PATIENT IN STABLE CONDITION. ALL NEEDS MET AT THIS TIME. WILL REPORT TO ONCOMING RN.
[2018-11-07 20:00] VITALS: BP 138/63
[2018-11-07] MEDS: TAMSULOSIN HCL 0.4 MG CAP.SR.24H PO SCH (21:06)
[2018-11-07] MEDS: INSULIN GLARGINE,HUM 300 UNITS/3 ML CARTRIDGE SQ SCH (21:16)
[2018-11-08 04:00] VITALS: BP 118/48
--- NOTE | 2018-11-08 06:28 | NUR ---
Patient slept 6 hours last night, cooperative and pleasant. Safety checks done, no SI . Endorsed to AM shift. no acute changes.
[2018-11-08] MEDS: BLOOD SUGAR DIAGNOSTIC 1 EACH STRIP VI SCH ×2 (06:32→11:21)
--- NOTE | 2018-11-08 08:00 | NUR ---
Patient resting in bed alert oriented x3. Pt. denies SOB / difficulty breathing. Pt. denies pain or discomfort. Patient calm and cooperative with nursing care. Safety measures in place. Call light within reach. Will continue to monitor pt.
[2018-11-08] MEDS: METFORMIN HCL 500 MG TABLET PO SCH (08:10)
[2018-11-08] MEDS: ASPIRIN 81 MG TAB.CHEW PO SCH (08:10)
[2018-11-08] MEDS: busPIRone 5 MG TABLET PO SCH ×2 (08:11→12:22)
[2018-11-08] MEDS: FUROSEMIDE 20 MG TABLET PO SCH (08:11)
[2018-11-08] MEDS: MAGNESIUM OXIDE 400 MG TABLET PO SCH (08:12)
[2018-11-08] MEDS: METOPROLOL TARTRATE 50 MG TABLET PO SCH (08:12)
[2018-11-08] MEDS: MULTIVIT, IRON, MIN NO. 8, FA TABLET PO SCH (08:12)
[2018-11-08] MEDS: LINAGLIPTIN 5 MG TABLET PO SCH (08:13)
[2018-11-08] MEDS: CHOLECALCIFEROL 1,000 UNIT TABLET PO SCH (08:13)
--- NOTE | 2018-11-08 11:06 | NUR ---
Discharge Note Patient will be discharged to back to [facility] [[address], [place] [address]; ]. Please arrange Ambulance transportation for patient at 2pm. Spoke with Triston [international marketing coordinator] at the facility who states they are ready to accept the patient back today. Patient is alert and oriented x3-4, denies suicidal or homicidal ideation, and is aware and agreeable with discharge plans. Patients brother and Manuel PADRON [[phone]] is made aware and agreeable with discharge plans. The patient is unable to provide for self-care at this time, however, is willing to accept care at [facility]. Patient will follow-up at the facility with Dr. Grimes (Psychiatrist) and Dr. Jain (Seismograph Helper). Patient was provided with outpatient mental health resources to [facility] Crisis [facility] , and the National Suicide Prevention Lifeline .
[2018-11-08 11:41] VITALS: BP 136/56
[2018-11-08] MEDS: INSULIN REGULAR, HUMAN 300 UNIT/3 ML VIAL SQ PRN (12:27)
[2018-11-08 15:19] VITALS: BP 137/62
--- NOTE | 2018-11-08 15:20 | NUR ---
Pt. discharged via ambulance in stretcher. Pt.'s vitals stable. Pt. stable. Pt. to be discharged to [facility]. Report given to Sophie Ambrose. ID band removed. Pt. signed all discharge papers. All belongings and papers with pt.
== END 2018-11-08 15:30 | DRG 880 ==
LOC: ER 17:35 → GPSOV3 22:32
PROVIDERS: ADMIT Psychiatry & Neurology Psychosomatic Medicine; ATTEND Internal Medicine Nephrology
DX: F41.9 Anxiety disorder, unspecified (principal); I11.0 Hypertensive heart disease with heart failure; I69.354 Hemiplegia and hemiparesis following cerebral infarction affecting left non-dominant side; E11.51 Type 2 diabetes mellitus with diabetic peripheral angiopathy without gangrene; E78.5 Hyperlipidemia, unspecified; Z90.49 Acquired absence of other specified parts of digestive tract; G20 Parkinson's disease; F02.80 Dementia in other diseases classified elsewhere, unspecified severity, without behavioral disturbance, psychotic disturbance, mood disturbance, and anxiety; Z79.4 Long term (current) use of insulin; R94.5 Abnormal results of liver function studies; I50.9 Heart failure, unspecified; N40.0 Benign prostatic hyperplasia without lower urinary tract symptoms; Z79.899 Other long term (current) drug therapy
CPT/HCPCS: 36415; 84443; 85025; A4663; G0480; G0480-TC; J1815